=== PATIENT | female | born 1955 | race Caucasian/White ===

== ENCOUNTER 2017-08-05 11:21 | Observation (INO) | payer OTHER ==
[2017-08-05] VITALS (9 sets, daily range): BP systolic 100–125; BP diastolic 64–80; PULSE 86–106; RESP 16–20; TEMP 98.2–98.4; O2SAT 97–99
[~2017-08-05 11:21] MED LIST: DIAZ5 PO; LEXA10TA PO; OXYC-360 PO; SOMA350T PO; XANA1TAB6 PO
[2017-08-05] MEDS ORDERED: MORP1TAB25 PO (11:57)
[2017-08-05] MEDS ORDERED: CYMB30CA PO (11:57)
[2017-08-05] MEDS ORDERED: CARI1TAB45 PO (11:57)
[2017-08-05] MEDS ORDERED: QUET1TAB9 PO (11:57)
[2017-08-05] MEDS ORDERED: PROM25TA10 PO (11:57)
[2017-08-05] MEDS ORDERED: ALPR2TAB3 PO ×2 (11:57→16:11)
[2017-08-05 12:31] LABS: AUTOMATED NEUTROPHIL # 3.8 TH/MM3 (1.8-7.7); BASOPHIL % 0.8 % (0.0-2.0); EOSINOPHIL % 0.4 % (0.0-4.0); HEMO FLAGS DIFF FINAL; LYMPH % 25.9 % (9.0-44.0); LYMPHOCYTE # 1.5 TH/MM3 (1.0-4.8); MEAN CORPUSCULAR HGB CONC 32.6 % (32.0-36.0); NEUT % 65.9 % (16.0-70.0); PLATELET COUNT 252 TH/MM3 (150-450); RED BLOOD COUNT 4.67 MIL/MM3 (4.00-5.30); WHITE BLOOD COUNT 5.8 TH/MM3 (4.0-11.0)
[2017-08-05 12:42] LABS: APTT (PATIENT) 25.4 SEC (24.3-30.1); INTERNATIONAL NORMALIZED RATIO 0.9 RATIO
--- NOTE | 2017-08-05 12:55 | PD ---
HPI Chief Complaint: Altered Mental Status Time Seen by Provider: 11:44 Travel History International Travel<30 days: No Contact w/Intl Traveler<30days: No Traveled to known affect area: No History of Present Illness HPI 62-year-old female that presents to the ED for evaluation of syncopal episode with altered mental status. Patient apparently was found by neighbors altered and apparently had a syncopal episode. Patient states that she does not remember what happened. Patient was Castro acted as she did not want to come to the hospital and there was some concern that this might be medication related. Patient at this moment appears to be back to baseline. She denies any symptoms other than having chest pain before this event happened. She does not remember what happened. She denies any drug abuse or alcohol abuse. She denies overdosing or have any suicidal or homicidal ideation. She states that she's had similar chest pain the past when she had her first A. fib episode. She denies any history of heart disease other than A. fib. She denies any symptoms at this time other than feeling weak and somewhat lethargic. She states that she takes Xanax chronically for anxiety. Most of the report of what happened on was given to me by ED nurse who spoke with ambulance as patient herself does not remember anything. Unclear if there was any head injury. She does not appear to have any signs of trauma on her. PFSH Past Medical History Arthritis: No Asthma: No Autoimmune Disease: No Blood Disorders: No Bipolar Disorder: Yes Anxiety: No Depression: Yes Heart Rhythm Problems: No Cancer: No Cardiovascular Problems: No High Cholesterol: No Chemotherapy: No Chest Pain: No Congestive Heart Failure: No COPD: No Cerebrovascular Accident: No Diabetes: No Diminished Hearing: No Gastrointestinal Disorders: No GERD: No Glaucoma: No Genitourinary: No Headaches: No Hepatitis: No Hiatal Hernia: No Heparin Induced Thrombocytopen: No Hypertension: No Immune Disorder: No Implanted Vascular Access Dvce: No Kidney Stones: No Musculoskeletal: Yes Neurologic: No Psychiatric: Yes (BIPOLAR. DEPRESSION) Reproductive: No Respiratory: No Migraines: No Myocardial Infarction: No Radiation Therapy: No Renal Failure: No Seizures: No Sickle Cell Disease: No Sleep Apnea: No Thyroid Disease: No Ulcer: No ?: Not Menopausal: Yes Past Surgical History Abdominal Surgery: No AICD: No Appendectomy: No Arteriovenous Shunt: No Cardiac Surgery: No Section: Yes Cholecystectomy: No Ear Surgery: No Eye Surgery: No Genitourinary Surgery: No Gynecologic Surgery: Yes (HYSTERECTOMY MAY 2001) Insulin Pump: No Joint Replacement: No Neurologic Surgery: No Oral Surgery: No Pacemaker: No Thoracic Surgery: No Other Surgery: Yes Social History Alcohol Use: No Tobacco Use: Yes Substance Use: No Allergies-Medications (Allergen,Severity, Reaction): Coded Allergies: Fish Containing Products (Unverified Allergy, Severe, 08/05/17) Sulfa (Sulfonamide Antibiotics) (Unverified Allergy, Severe, HIVES, THROAT SWELLS CLOSED, 08/05/17) ciprofloxacin (Verified Allergy, Intermediate, rash, 08/05/17) latex (Unverified Adverse Reaction, Mild, rash, 08/05/17) Reported Meds & Prescriptions Reported Meds & Active Scripts Active Reported Cymbalta DR (Duloxetine HCl) 30 Mg Capdr 30 Mg PO DAILY Quetiapine (Quetiapine Fumarate) 200 Mg Tab 200 Mg PO HS Morphine ER (Morphine Sulfate) 30 Mg Tab 30 Mg PO BID Phenergan (Promethazine HCl) 25 Mg Tablet 25 Mg PO Q8HR NEB Carisoprodol 250 Mg Tab 250 Mg PO QID PRN Alprazolam 2 Mg Tab 2 Mg PO TID Review of Systems Except as stated in HPI: all other systems reviewed are Neg Physical Exam Narrative GENERAL: SKIN: Warm and dry. HEAD: Atraumatic. Normocephalic. EYES: Pupils equal and round. No scleral icterus. No injection or drainage. ENT: No nasal bleeding or discharge. Mucous membranes pink and moist. Tongue is midline. No uvula deviation. NECK: Trachea midline. No JVD. CARDIOVASCULAR: Regular rate and rhythm. No murmurs, S3, S4. RESPIRATORY: No accessory muscle use. Clear to auscultation. Breath sounds equal bilaterally. GASTROINTESTINAL: Abdomen soft, non-tender, nondistended. Hepatic and splenic margins not palpable. MUSCULOSKELETAL: Extremities without clubbing, cyanosis, or edema. No obvious deformities. Full range of motion of the upper and lower extremities bilaterally. 2+ pulses bilaterally. NEUROLOGICAL: Awake and alert. No obvious cranial nerve deficits. Motor grossly within normal limits. Five out of 5 muscle strength in the arms and legs. Normal speech. PSYCHIATRIC: Appropriate mood and affect; insight and judgment normal. Data Data Last Documented VS Vital Signs Date Time Temp Pulse Resp B/P (MAP) Pulse Ox O2 Delivery O2 Flow Rate FiO2 08/05/17 11:42 105 20 99 Nasal Cannula 2.00 08/05/17 11:42 98.2 100/64 (76) Orders Orders Electrocardiogram (08/05/17 11:49) Complete Blood Count With Diff (08/05/17 11:49) Comprehensive Metabolic Panel (08/05/17 11:49) Ckmb (Isoenzyme) Profile (08/05/17 11:49) Troponin I (08/05/17 11:49) Prothrombin Time / Inr (Pt) (08/05/17 11:49) Act Partial Throm Time (Ptt) (08/05/17 11:49) Lipase (08/05/17 11:49) Urinalysis - C+S If Indicated (08/05/17 11:49) Magnesium (Mg) (08/05/17 11:49) Thyroid Stimulating Hormone (08/05/17 11:49) Chest, Single Ap (08/05/17 11:49) Ct Brain W/O Iv Contrast(Rout) (08/05/17 11:49) Iv Access Insert/Monitor (08/05/17 11:49) Ecg Monitoring (08/05/17 11:49) Oximetry (08/05/17 11:49) Drug Screen, Random Urine (08/05/17 11:49) Alcohol (Ethanol) (08/05/17 11:49) Salicylates (Aspirin) (08/05/17 11:49) Tylenol (Acetaminophen) (08/05/17 11:49) Sodium Chlor 0.9% 1000 Ml Inj (Ns 1000 M (08/05/17 15:00) Orthostatic Vital Signs (08/05/17 13:32) Admit Order (Ed Use Only) (08/05/17 14:32) Consult Psychiatry (08/05/17 ) Labs Laboratory Tests Test 08/05/17 11:40 08/05/17 13:00 08/05/17 13:30 White Blood Count 5.8 TH/MM3 Red Blood Count 4.67 MIL/MM3 Hemoglobin 14.0 GM/DL Hematocrit 43.0 % Mean Corpuscular Volume 92.0 FL Mean Corpuscular Hemoglobin 30.0 PG Mean Corpuscular Hemoglobin Concent 32.6 % Red Cell Distribution Width 15.0 % Platelet Count 252 TH/MM3 Mean Platelet Volume 7.4 FL Neutrophils (%) (Auto) 65.9 % Lymphocytes (%) (Auto) 25.9 % Monocytes (%) (Auto) 7.0 % Eosinophils (%) (Auto) 0.4 % Basophils (%) (Auto) 0.8 % Neutrophils # (Auto) 3.8 TH/MM3 Lymphocytes # (Auto) 1.5 TH/MM3 Monocytes # (Auto) 0.4 TH/MM3 Eosinophils # (Auto) 0.0 TH/MM3 Basophils # (Auto) 0.0 TH/MM3 CBC Comment DIFF FINAL Differential Comment Prothrombin Time 10.0 SEC Prothromb Time International Ratio 0.9 RATIO Activated Partial Thromboplast Time 25.4 SEC Blood Urea Nitrogen 13 MG/DL Creatinine 1.23 MG/DL Random Glucose 99 MG/DL Total Protein 5.7 GM/DL Albumin 2.3 GM/DL Calcium Level 7.5 MG/DL Magnesium Level 2.3 MG/DL Alkaline Phosphatase 141 U/L Aspartate Amino Transf (AST/SGOT) 18 U/L Alanine Aminotransferase (ALT/SGPT) 21 U/L Total Bilirubin LESS THAN 0.1 MG/DL Sodium Level 139 MEQ/L Potassium Level 4.4 MEQ/L Chloride Level 106 MEQ/L Carbon Dioxide Level 25.6 MEQ/L Anion Gap 7 MEQ/L Estimat Glomerular Filtration Rate 44 ML/MIN Total Creatine Kinase 66 U/L Troponin I LESS THAN 0.02 NG/ML Lipase 45 U/L Thyroid Stimulating Hormone 3rd Gen 1.280 uIU/ML Salicylates Level 3.0 MG/DL Acetaminophen Level LESS THAN 2.0 MCG/ML Ethyl Alcohol Level LESS THAN 3 MG/DL Urine Color YELLOW Urine Turbidity CLEAR Urine pH 5.5 Urine Specific [place] 1.033 Urine Protein 30 mg/dL Urine Glucose (UA) NEG mg/dL Urine Ketones TRACE mg/dL Urine Occult Blood NEG Urine Nitrite NEG Urine Bilirubin NEG Urine Urobilinogen 4.0 MG/DL Urine Leukocyte Esterase SMALL Urine RBC 2 /hpf Urine WBC 1 /hpf Urine Squamous Epithelial Cells 2 /hpf Urine Bacteria RARE /hpf Urine Hyaline Casts 3 /lpf Urine Mucus FEW /lpf Microscopic Urinalysis Comment CULT NOT INDICATED Urine Opiates Screen POS Urine Barbiturates Screen NEG Urine Amphetamines Screen NEG Urine Benzodiazepines Screen POS Urine Cocaine Screen NEG Urine Cannabinoids Screen NEG MDM Medical Decision Making Medical Screen Exam Complete: Yes Emergency Medical Condition: Yes Medical Record Reviewed: Yes Interpretation(s) EKG shows sinus tachycardia but no sign of acute ischemia or arrhythmia read by me and attending. Last Impressions Head CT 08/05/17 1149 Signed Impressions: Service Date/Time: Saturday, August 05, 2017 13:53 - CONCLUSION: No acute intercranial abnormality demonstrated. Vicente Guerra MD Chest X-Ray 08/05/17 1149 Signed Impressions: Service Date/Time: Saturday, August 05, 2017 12:49 - CONCLUSION: Mild basilar parenchymal opacities Vicente Keller MD CBC & BMP Diagram 08/05/17 11:40 Total Protein 5.7 L, Albumin 2.3 L, Calcium Level 7.5 L, Magnesium Level 2.3, Alkaline Phosphatase 141 H, Aspartate Amino Transf (AST/SGOT) 18, Alanine Aminotransferase (ALT/SGPT) 21, Total Bilirubin LESS THAN 0.1 L troponin and CKMB negative tox screen positive for benzos and opiates otherwise negative Differential Diagnosis Syncope versus medication side effect versus chest pain versus a typical chest pain versus electrolyte abnormality versus altered mental status Narrative Course 62-year-old female that presents to the ED for evaluation of altered mental status. Patient was properly examined and was found to have signs and symptoms consistent what appears to be syncope. Unclear etiology. Patient was Castro acted by police as she initially was altered and did not wanted to come here. Patient at this time appears to be more with it. She denies any symptoms at this time. No chest pain. Labs and imaging were ordered. Patient was given IV fluids that she was initially found to be hypotensive by ambulance. Labs and imaging came back essentially negative. Patient still and oriented 3. Case discussed with Dr Collins who was made aware of all finding and labs and at this time would recommend medical admission for further evaluation of syncope. Patient still Castro act. We'll do psych consult. [facility] was contacted. Dr Cordero agrees to admit. Diagnosis Primary Impression: Syncope Qualified Codes: R55 - Syncope and collapse Additional Impression: Altered mental state Qualified Codes: R41.82 - Altered mental status, unspecified Admitting Information Admitting Physician Requests: Observation Mathew Dupree Aug 05, 2017 12:55
[2017-08-05 13:16] LABS: ACETAMINOPHEN LESS THAN 2.0 MCG/ML (10.0-30.0); ALKALINE PHOSPHATASE 141 U/L (45-117); ALT (GPT) 21 U/L (10-53); ANION GAP 7 MEQ/L (5-15); AST (GOT) 18 U/L (15-37); BICARBONATE 25.6 MEQ/L (21.0-32.0); BLOOD UREA NITROGEN 13 MG/DL (7-18); CHLORIDE 106 MEQ/L (98-107); GLOMERULAR FILTRATION RATE 44 ML/MIN (>89); MAGNESIUM 2.3 MG/DL (1.5-2.5); POTASSIUM 4.4 MEQ/L (3.5-5.1); SODIUM (NA) 139 MEQ/L (136-145); TOTAL BILIRUBIN ADULT LESS THAN 0.1 MG/DL (0.2-1.0)
[2017-08-05 13:18] LABS: ALCOHOL LESS THAN 3 MG/DL (0-5); CREATINE KINASE 66 U/L (26-192)
--- NOTE | 2017-08-05 13:25 | RADRPT ---
EXAM DATE/TIME: 08/05/2017 12:49 [facility] COMPARISON: No previous studies available for comparison. INDICATIONS : Mid sternal chest pains radiating into left arm MEDICAL HISTORY : None. SURGICAL HISTORY : None. ENCOUNTER: Initial ACUITY: 3 days PAIN SCORE: 9/10 LOCATION: Left chest FINDINGS: Mild atelectasis or streaky infiltrate in the lung bases, left worse than right. No evidence of effus ion. Cardiomediastinal contours and pulmonary vascularity are normal. CONCLUSION: Mild basilar parenchymal opacities Vicente Keller MD on August 05, 2017 at 13:23 Board Certified Radiologist. This report was verified electronically.
[2017-08-05 13:46] LABS: BACTERIA, URINE RARE /hpf; BLOOD, URINE NEG (NEG); COMMENT (UR) CULT NOT INDICATED; CULTURE IF INDICATED CULT NOT INDICATED; GLUCOSE,URINE NEG (NEG); HYALINE CAST, URINE 3 /lpf (RARE); KETONE, URINE TRACE mg/dL (NEG); MUCUS URINE FEW /lpf (OCC); NITRITE,URINE NEG (NEG); PH, URINE 5.5 (5.0-8.5); SQUAMOUS EPITHELIAL CELL URINE 2 /hpf (0-5); URINE COLOR YELLOW (YELLW/STRAW)
--- NOTE | 2017-08-05 14:17 | RADRPT ---
EXAM DATE/TIME: 08/05/2017 13:53 [facility] COMPARISON: No previous studies available for comparison. INDICATIONS : Altered mental status RADIATION DOSE: 31.17 CTDIvol (mGy) MEDICAL HISTORY : None SURGICAL HISTORY : Hysterectomy. section. ENCOUNTER: Initial ACUITY: 1 day PAIN SCALE: 0/10 LOCATION: cranial TECHNIQUE: Multiple contiguous axial images were obtained of the head. Using automated exposure control and adj ustment of the mA and/or kV according to patient size, radiation dose was kept as low as reasonably a chievable to obtain optimal diagnostic quality images. DICOM format image data is available electro nically for review and comparison. FINDINGS: CEREBRUM: The ventricles are normal for age. No evidence of midline shift, mass lesion, hemorrhage or acute in farction. No extra-axial fluid collections are seen. POSTERIOR FOSSA: The cerebellum and brainstem are intact. The 4th ventricle is midline. The cerebellopontine angle i s unremarkable. EXTRACRANIAL: The visualized portion of the orbits is intact. SKULL: The calvaria is intact. No evidence of skull fracture. CONCLUSION: No acute intercranial abnormality demonstrated. Vicente Guerra MD on August 05, 2017 at 14:10 Board Certified Radiologist. This report was verified electronically.
[2017-08-05] MEDS ORDERED: SODIUM CHLOR 0.9% 1000 ML INJ 1,000 ML IV SCH (15:00)
--- NOTE | 2017-08-05 16:21 | HHI.HP ---
HPI Service [facility] Hospitalists Primary Care Physician Bhavik Tavera M.D. Admission Diagnosis acute syncope with AMS Chief Complaint: AMS Travel History International Travel<30 Days: No Contact w/Intl Traveler <30 Da: No Traveled to Known Affected Are: No History of Present Illness Patient went to her neighbors to bring her a book then does not remember anything else until she was in the ambulance. Per RN patient was hypotensive when the EMS team arrived SBP 80's Past Family Social History Allergies: Coded Allergies: Fish Containing Products (Unverified Allergy, Severe, 08/05/17) Sulfa (Sulfonamide Antibiotics) (Unverified Allergy, Severe, HIVES, THROAT SWELLS CLOSED, 08/05/17) ciprofloxacin (Verified Allergy, Intermediate, rash, 08/05/17) latex (Unverified Adverse Reaction, Mild, rash, 08/05/17) Physical Exam Vital Signs Vital Signs Date Time Temp Pulse Resp B/P (MAP) Pulse Ox O2 Delivery O2 Flow Rate FiO2 08/05/17 16:04 92 18 114/74 (87) 96 20 118/79 (92) 08/05/17 15:14 98 Room Air 08/05/17 14:30 92 16 107/77 (87) 98 Room Air 08/05/17 11:42 105 20 99 Nasal Cannula 2.00 08/05/17 11:42 98.2 106 20 100/64 (76) 99 Nasal Cannula 2.00 08/05/17 11:36 98.4 104 20 100/64 (76) 97 Physical Exam GENERAL: This is a well-nourished, well-developed patient, in no apparent distress. SKIN: No rashes, ecchymoses or lesions. Cool and dry. HEAD: Atraumatic. Normocephalic. No temporal or scalp tenderness. EYES: Pupils equal round and reactive. Extraocular motions intact. No scleral icterus. No injection or drainage. ENT: Nose without bleeding, purulent drainage or septal hematoma. Throat without erythema, tonsillar hypertrophy or exudate. Uvula midline. Airway patent. NECK: Trachea midline. No JVD or lymphadenopathy. Supple, nontender, no meningeal signs. CARDIOVASCULAR: Regular rate and rhythm without murmurs, gallops, or rubs. RESPIRATORY: Clear to auscultation. Breath sounds equal bilaterally. No wheezes , rales, or rhonchi. GASTROINTESTINAL: Abdomen soft, non-tender, nondistended. No hepato-splenomegaly , or palpable masses. No guarding. MUSCULOSKELETAL: Extremities without clubbing, cyanosis, or edema. No joint tenderness, effusion, or edema noted. No calf tenderness. Negative Homans sign bilaterally. NEUROLOGICAL: Awake and alert. Cranial nerves II through XII intact. Motor and sensory grossly within normal limits. Five out of 5 muscle strength in all muscle groups. Normal speech. Laboratory Laboratory Tests Test 08/05/17 11:40 08/05/17 13:00 08/05/17 13:30 White Blood Count 5.8 Red Blood Count 4.67 Hemoglobin 14.0 Hematocrit 43.0 Mean Corpuscular Volume 92.0 Mean Corpuscular Hemoglobin 30.0 Mean Corpuscular Hemoglobin Concent 32.6 Red Cell Distribution Width 15.0 Platelet Count 252 Mean Platelet Volume 7.4 Neutrophils (%) (Auto) 65.9 Lymphocytes (%) (Auto) 25.9 Monocytes (%) (Auto) 7.0 Eosinophils (%) (Auto) 0.4 Basophils (%) (Auto) 0.8 Neutrophils # (Auto) 3.8 Lymphocytes # (Auto) 1.5 Monocytes # (Auto) 0.4 Eosinophils # (Auto) 0.0 Basophils # (Auto) 0.0 CBC Comment DIFF FINAL Differential Comment Prothrombin Time 10.0 Prothromb Time International Ratio 0.9 Activated Partial Thromboplast Time 25.4 Blood Urea Nitrogen 13 Creatinine 1.23 Random Glucose 99 Total Protein 5.7 Albumin 2.3 Calcium Level 7.5 Magnesium Level 2.3 Alkaline Phosphatase 141 Aspartate Amino Transf (AST/SGOT) 18 Alanine Aminotransferase (ALT/SGPT) 21 Total Bilirubin LESS THAN 0.1 Sodium Level 139 Potassium Level 4.4 Chloride Level 106 Carbon Dioxide Level 25.6 Anion Gap 7 Estimat Glomerular Filtration Rate 44 Total Creatine Kinase 66 Troponin I LESS THAN 0.02 Lipase 45 Thyroid Stimulating Hormone 3rd Gen 1.280 Salicylates Level 3.0 Acetaminophen Level LESS THAN 2.0 Ethyl Alcohol Level LESS THAN 3 Urine Color YELLOW Urine Turbidity CLEAR Urine pH 5.5 Urine Specific [place] 1.033 Urine Protein 30 Urine Glucose (UA) NEG Urine Ketones TRACE Urine Occult Blood NEG Urine Nitrite NEG Urine Bilirubin NEG Urine Urobilinogen 4.0 Urine Leukocyte Esterase SMALL Urine RBC 2 Urine WBC 1 Urine Squamous Epithelial Cells 2 Urine Bacteria RARE Urine Hyaline Casts 3 Urine Mucus FEW Microscopic Urinalysis Comment CULT NOT INDICATED Urine Opiates Screen POS Urine Barbiturates Screen NEG Urine Amphetamines Screen NEG Urine Benzodiazepines Screen POS Urine Cocaine Screen NEG Urine Cannabinoids Screen NEG Result Diagram: 08/05/17 1140 08/05/17 1140 Caprini VTE Risk Assessment Caprini Risk Assessment Model Point Value = 1 Point Value = 2 Point Value = 3 Point Value = 5 Age 41-60 Minor surgery BMI > 25 kg/m2 Swollen legs Varicose veins or History of unexplained or recurrent spontaneous Oral contraceptives or hormone replacement Sepsis (< 1 month) Serious lung disease, including pneumonia (< 1 month) Abnormal pulmonary function Acute myocardial infarction Congestive heart failure (< 1 month) History of inflammatory bowel disease Medical patient at bed rest Age 61-74 Arthroscopic surgery Major open surgery (> 45 min) Laparoscopic surgery (> 45 min) Malignancy Confined to bed (> 72 hours) Immobilizing plaster cast Central venous access Age >= 75 History of VTE Family history of VTE Factor V Leiden Prothrombin [id number] Lupus anticoagulant Anticardiolipin antibodies Elevated serum homocysteine Heparin-induced thrombocytopenia Other congenital or acquired thrombophilia Stroke (< 1 month) Elective arthroplasty Hip, pelvis, or leg fracture Acute spinal cord injury (< 1 month) Prophylaxis Regimen Total Risk Factor Score Risk Level Prophylaxis Regimen 0-1 Low Early ambulation 2 Moderate Order ONE of the following: *Sequential Compression Device (SCD) *Heparin 5000 units SQ BID 3-4 Higher Order ONE of the following medications: *Heparin 5000 units SQ TID *Enoxaparin/Lovenox 40 mg SQ daily (WT < 150 kg, CrCl > 30 mL/min) *Enoxaparin/Lovenox 30 mg SQ daily (WT < 150 kg, CrCl > 10-29 mL/min) *Enoxaparin/Lovenox 30 mg SQ BID (WT < 150 kg, CrCl > 30 mL/min) AND/OR *Sequential Compression Device (SCD) 5 or more Highest Order ONE of the following medications: *Heparin 5000 units SQ TID (Preferred with Epidurals) *Enoxaparin/Lovenox 40 mg SQ daily (WT < 150 kg, CrCl > 30 mL/min) *Enoxaparin/Lovenox 30 mg SQ daily (WT < 150 kg, CrCl > 10-29 mL/min) *Enoxaparin/Lovenox 30 mg SQ BID (WT < 150 kg, CrCl > 30 mL/min) AND *Sequential Compression Device (SCD) Belem Wynne Aug 05, 2017 16:21
[2017-08-05] MEDS ORDERED: NALOXONE HCL 0.4 MG/ML AMP IV PRN (16:30)
[2017-08-05] MEDS ORDERED: MAGNESIUM HYDROXIDE SUSP 30 ML CUP PO PRN (16:30)
[2017-08-05] MEDS ORDERED: ONDANSETRON HCL 4 MG/2 ML VIAL IVP PRN (16:30)
[2017-08-05] MEDS ORDERED: ACETAMINOPHEN 325 MG TAB PO PRN (16:30)
[2017-08-05] MEDS ORDERED: SODIUM CHLORIDE 0.9% FLUSH 10 ML FLUSH IV FLUSH PRN (16:30)
--- NOTE | 2017-08-05 16:30 | HHI.HP ---
HPI Service [facility] Hospitalists Primary Care Physician Bhavik Tavera M.D. Admission Diagnosis acute syncope with AMS Travel History International Travel<30 Days: No Contact w/Intl Traveler <30 Da: No Traveled to Known Affected Are: No History of Present Illness This is a 62-year-old female patient with past medical history which includes chronic kidney disease stage III, chronic back pain, bipolar/depression. Patient remembers going to her neighbor's house to bring her book then does not remember anything else until she was in the ambulance. Patient unable to provide her neighbor's telephone number at this time. Unable to obtain exact account of events. Patient is a poor historian as she does not recall the events. Patient does not call presyncopal sensation, complete syncope, head trauma or loss of consciousness. Per RN patient was hypotensive when the EMS team arrived to her neighbor's house with SBP 80's. Patient was initially Castro acted as she was refusing to come to the emergency department for further evaluation. At this time patient is alert and oriented 3 reports she feels well denies chest pain shortness of breath cough congestion fevers chills nausea vomiting diarrhea constipation. Patient reports prior to the incident she was in her normal state of health. His admit that her psychiatrist Dr. Fraser has been adjusting her medications. Patient's in May and her daughter recently as well. Patient reports that her Seroquel was increased to 200 mg daily at bedtime from 100 mg daily at bedtime and Cymbalta 30 mg daily was added. Review of Systems Constitutional: DENIES: Fatigue, Fever, Chills Respiratory: DENIES: Cough, Sputum production, Shortness of breath Cardiovascular: DENIES: Chest pain, Palpitations, Dyspnea on Exertion, Lower Extremity Edema Gastrointestinal: DENIES: Abdominal pain, Black stools, Bloody stools, Constipation, Diarrhea Psychiatric: COMPLAINS OF: History of Bipolar, DENIES: Anxiety, Depression Past Family Social History Past Medical History chronic kidney disease stage III, chronic back pain, bipolar/depression Past Surgical History Complete hysterectomy 2000, Reported Medications Alprazolam 2 Mg Tab 2 Mg PO HS MDD [address] (Duloxetine HCl) 30 Mg Capdr 30 Mg PO DAILY Quetiapine (Quetiapine Fumarate) 200 Mg Tab 200 Mg PO HS Morphine ER (Morphine Sulfate) 30 Mg Tab 30 Mg PO BID Phenergan (Promethazine HCl) 25 Mg Tablet 25 Mg PO Q8HR NEB Carisoprodol 250 Mg Tab 250 Mg PO QID PRN Allergies: Coded Allergies: Fish Containing Products (Unverified Allergy, Severe, 08/05/17) Sulfa (Sulfonamide Antibiotics) (Unverified Allergy, Severe, HIVES, THROAT SWELLS CLOSED, 08/05/17) ciprofloxacin (Verified Allergy, Intermediate, rash, 08/05/17) latex (Unverified Adverse Reaction, Mild, rash, 08/05/17) Active Ordered Medications Current Medications Medications (Trade) Dose Ordered Sig/Rajiv Route Start Time Stop Time Status Last Admin Sodium Chloride 1,000 ml @ 84 mls/hr [id number] IV 08/05/17 16:23 UNV (NS Flush) 2 ml UNSCH PRN IV FLUSH 08/05/17 16:30 UNV (NS Flush) 2 ml BID IV FLUSH 08/05/17 21:00 UNV (Tylenol) 650 mg Q4H PRN PO 08/05/17 16:30 UNV (Zofran Inj) 4 mg Q6H PRN IVP 08/05/17 16:30 UNV (Narcan Inj) 0.4 mg UNSCH PRN IV 08/05/17 16:30 UNV (Milk Of Magnesia Liq) 30 ml Q12H PRN PO 08/05/17 16:30 UNV (Xanax) 2 mg HS PO 08/05/17 21:00 UNV (Cymbalta Dr) 30 mg DAILY PO 08/06/17 09:00 UNV (Oramorph Sr) 30 mg BID PO 08/05/17 21:00 UNV (SEROquel) 100 mg HS PO 08/05/17 21:00 UNV Family History Father in his 40s secondary to aneurysm Mother is in her 80s alive and healthy Social History Patient quit smoking 2 years ago- prior to that smoked 3-4 cigarette per day Denies EtOH use, denies illicit drug use Physical Exam Vital Signs Vital Signs Date Time Temp Pulse Resp B/P (MAP) Pulse Ox O2 Delivery O2 Flow Rate FiO2 08/05/17 16:04 92 18 114/74 (87) 96 20 118/79 (92) 08/05/17 15:14 98 Room Air 08/05/17 14:30 92 16 107/77 (87) 98 Room Air 08/05/17 11:42 105 20 99 Nasal Cannula 2.00 08/05/17 11:42 98.2 106 20 100/64 (76) 99 Nasal Cannula 2.00 08/05/17 11:36 98.4 104 20 100/64 (76) 97 Physical Exam GENERAL: This is a well-nourished, well-developed patient, in no apparent distress. SKIN: No rashes, ecchymoses or lesions. Cool and dry. HEAD: Atraumatic. Normocephalic. No temporal or scalp tenderness. EYES: Extraocular motions intact. No scleral icterus. No injection or drainage. NECK: Trachea midline. No JVD or lymphadenopathy. Supple, nontender, no meningeal signs. CARDIOVASCULAR: Regular rate and rhythm without murmurs, gallops, or rubs. No carotid bruit on auscultation RESPIRATORY: Clear to auscultation. Breath sounds equal bilaterally. No wheezes , rales, or rhonchi. GASTROINTESTINAL: Abdomen soft, non-tender, nondistended. MUSCULOSKELETAL: Extremities without clubbing, cyanosis, or edema. No joint tenderness, effusion, or edema noted. No calf tenderness. Negative Homans sign bilaterally. NEUROLOGICAL: Awake and alert. No focal deficit noted. Motor and sensory grossly within normal limits. Five out of 5 muscle strength in all muscle groups. Normal speech. Laboratory Laboratory Tests Test 08/05/17 11:40 08/05/17 13:00 08/05/17 13:30 White Blood Count 5.8 Red Blood Count 4.67 Hemoglobin 14.0 Hematocrit 43.0 Mean Corpuscular Volume 92.0 Mean Corpuscular Hemoglobin 30.0 Mean Corpuscular Hemoglobin Concent 32.6 Red Cell Distribution Width 15.0 Platelet Count 252 Mean Platelet Volume 7.4 Neutrophils (%) (Auto) 65.9 Lymphocytes (%) (Auto) 25.9 Monocytes (%) (Auto) 7.0 Eosinophils (%) (Auto) 0.4 Basophils (%) (Auto) 0.8 Neutrophils # (Auto) 3.8 Lymphocytes # (Auto) 1.5 Monocytes # (Auto) 0.4 Eosinophils # (Auto) 0.0 Basophils # (Auto) 0.0 CBC Comment DIFF FINAL Differential Comment Prothrombin Time 10.0 Prothromb Time International Ratio 0.9 Activated Partial Thromboplast Time 25.4 Blood Urea Nitrogen 13 Creatinine 1.23 Random Glucose 99 Total Protein 5.7 Albumin 2.3 Calcium Level 7.5 Magnesium Level 2.3 Alkaline Phosphatase 141 Aspartate Amino Transf (AST/SGOT) 18 Alanine Aminotransferase (ALT/SGPT) 21 Total Bilirubin LESS THAN 0.1 Sodium Level 139 Potassium Level 4.4 Chloride Level 106 Carbon Dioxide Level 25.6 Anion Gap 7 Estimat Glomerular Filtration Rate 44 Total Creatine Kinase 66 Troponin I LESS THAN 0.02 Lipase 45 Thyroid Stimulating Hormone 3rd Gen 1.280 Salicylates Level 3.0 Acetaminophen Level LESS THAN 2.0 Ethyl Alcohol Level LESS THAN 3 Urine Color YELLOW Urine Turbidity CLEAR Urine pH 5.5 Urine Specific [place] 1.033 Urine Protein 30 Urine Glucose (UA) NEG Urine Ketones TRACE Urine Occult Blood NEG Urine Nitrite NEG Urine Bilirubin NEG Urine Urobilinogen 4.0 Urine Leukocyte Esterase SMALL Urine RBC 2 Urine WBC 1 Urine Squamous Epithelial Cells 2 Urine Bacteria RARE Urine Hyaline Casts 3 Urine Mucus FEW Microscopic Urinalysis Comment CULT NOT INDICATED Urine Opiates Screen POS Urine Barbiturates Screen NEG Urine Amphetamines Screen NEG Urine Benzodiazepines Screen POS Urine Cocaine Screen NEG Urine Cannabinoids Screen NEG Result Diagram: 08/05/17 1140 08/05/17 1140 Imaging Last Impressions Head CT 08/05/17 1149 Signed Impressions: Service Date/Time: Saturday, August 05, 2017 13:53 - CONCLUSION: No acute intercranial abnormality demonstrated. Vicente Guerra MD Chest X-Ray 08/05/17 1149 Signed Impressions: Service Date/Time: Saturday, August 05, 2017 12:49 - CONCLUSION: Mild basilar parenchymal opacities Vicente Keller MD Caprini VTE Risk Assessment Caprini VTE Risk Assessment: Mod/High Risk (score >= 2) Caprini Risk Assessment Model Point Value = 1 Point Value = 2 Point Value = 3 Point Value = 5 Age 41-60 Minor surgery BMI > 25 kg/m2 Swollen legs Varicose veins or History of unexplained or recurrent spontaneous Oral contraceptives or hormone replacement Sepsis (< 1 month) Serious lung disease, including pneumonia (< 1 month) Abnormal pulmonary function Acute myocardial infarction Congestive heart failure (< 1 month) History of inflammatory bowel disease Medical patient at bed rest Age 61-74 Arthroscopic surgery Major open surgery (> 45 min) Laparoscopic surgery (> 45 min) Malignancy Confined to bed (> 72 hours) Immobilizing plaster cast Central venous access Age >= 75 History of VTE Family history of VTE Factor V Leiden Prothrombin [id number] Lupus anticoagulant Anticardiolipin antibodies Elevated serum homocysteine Heparin-induced thrombocytopenia Other congenital or acquired thrombophilia Stroke (< 1 month) Elective arthroplasty Hip, pelvis, or leg fracture Acute spinal cord injury (< 1 month) Prophylaxis Regimen Total Risk Factor Score Risk Level Prophylaxis Regimen 0-1 Low Early ambulation 2 Moderate Order ONE of the following: *Sequential Compression Device (SCD) *Heparin 5000 units SQ BID 3-4 Higher Order ONE of the following medications: *Heparin 5000 units SQ TID *Enoxaparin/Lovenox 40 mg SQ daily (WT < 150 kg, CrCl > 30 mL/min) *Enoxaparin/Lovenox 30 mg SQ daily (WT < 150 kg, CrCl > 10-29 mL/min) *Enoxaparin/Lovenox 30 mg SQ BID (WT < 150 kg, CrCl > 30 mL/min) AND/OR *Sequential Compression Device (SCD) 5 or more Highest Order ONE of the following medications: *Heparin 5000 units SQ TID (Preferred with Epidurals) *Enoxaparin/Lovenox 40 mg SQ daily (WT < 150 kg, CrCl > 30 mL/min) *Enoxaparin/Lovenox 30 mg SQ daily (WT < 150 kg, CrCl > 10-29 mL/min) *Enoxaparin/Lovenox 30 mg SQ BID (WT < 150 kg, CrCl > 30 mL/min) AND *Sequential Compression Device (SCD) Assessment and Plan Problem List: (1) Delirium ICD Codes: R41.0 - Disorientation, unspecified (2) Bipolar 1 disorder, depressed ICD Codes: F31.9 - Bipolar disorder, unspecified (3) CKD (chronic kidney disease), stage III ICD Codes: N18.3 - Chronic kidney disease, stage 3 (moderate) Assessment and Plan Transient delirium- may be medication related Patient currently under castro act- Psych consulted - Patient's in May and also her dog recently - patient psychiatrist Dr. Rizzo has been adjusting medications recently started patient on Cymbalta 30 mg daily and increase Seroquel to 200 mg QHS from 100 mg QHS - will decrease Seroquel to 100 mg PO QHS - monitor patient overnight on telemetry - CT head reviewed no acute finding - PT evaluation Bipolar/Depression - continue home medications which include Cymbalta 30 mg daily and Alprazolam 2 mg PO QHS - will decrease Seroquel to 100 mg PO QHS CKD stage III - avoid nephrotoxic agents DVT prophylaxis with SCDs Patient examined. Assessment and plan formulated with Belem Wynne PA-C. I agree with the above. transient delirium and reported low bp. currently pt seems back to baseline. could be related to her pain and/or psych meds. monitor on tele and give ivf. PT eval. psych to see as pt was Castro acted. Belem Wynne Aug 05, 2017 16:30 Stanley Garg MD Aug 05, 2017 18:17
[2017-08-05] MEDS: SODIUM CHLOR 0.9% 1000 ML INJ 1,000 ML IV SCH (18:40)
[2017-08-05] MEDS: SODIUM CHLORIDE 0.9% FLUSH 10 ML FLUSH IV FLUSH SCH (20:10)
[2017-08-05] MEDS: MORPHINE SULFATE 30 MG CONTROLLED RELEASE TAB PO SCH (20:11)
[2017-08-05] MEDS ORDERED: QUEtiapine FUMARATE 100 MG TAB PO SCH (21:00)
[2017-08-05] MEDS ORDERED: ALPRAZolam 1 MG TAB PO SCH (21:00)
[2017-08-06] VITALS (7 sets, daily range): BP systolic 95–128; BP diastolic 60–72; PULSE 71–100; RESP 16–18; TEMP 97.7–98.3; O2SAT 96–100
[2017-08-06] MEDS: SODIUM CHLOR 0.9% 1000 ML INJ 1,000 ML IV SCH (06:18)
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
[2017-08-06] MEDS ORDERED: QUET1TAB8 PO (08:29)
--- NOTE | 2017-08-06 08:30 | HHI.DCPOC ---
Discharge Care Plan Diagnosis: (1) Delirium (2) Bipolar 1 disorder, depressed (3) CKD (chronic kidney disease), stage III Goals to Promote Your Health * To prevent worsening of your condition and complications * To maintain your health at the optimal level Directions to Meet Your Goals Take your medications as prescribed Follow your dietary instruction Follow activity as directed Keep your appointments as scheduled Take your immunizations and boosters as scheduled If your symptoms worsen call your PCP, if no PCP go to Urgent Care Center or Emergency Room Smoking is Dangerous to Your Health. Avoid second hand smoke Call the 24-hour hour crisis hotline for domestic abuse at Rosita Contreras Aug 06, 2017 08:30
[2017-08-06] MEDS: SODIUM CHLORIDE 0.9% FLUSH 10 ML FLUSH IV FLUSH SCH (09:00)
[2017-08-06] MEDS ORDERED: DULoxetine HCl DR 30 MG CAP PO SCH (09:00)
[2017-08-06] MEDS: MORPHINE SULFATE 30 MG CONTROLLED RELEASE TAB PO SCH (09:01)
--- NOTE | 2017-08-06 09:13 | PD.PSY.CON ---
Provisional Diagnosis Admission Date Aug 05, 2017 at 14:34 [place] I. Chronic bipolar disorder, anxiety [place] II. Deferred [place] III. Back pain History of Present Illness Service Psychiatry Consult Requested By Reason for Consult Suicidal attempt Primary Care Physician Bhavik Tavera M.D. HPI The patient is a 62-year-old woman, domicile with her mother in [place], , retired, with psychiatric history of bipolar disorder, anxiety , no previous psychiatric hospitalizations, no previous suicidal attempts, establish outpatient care with Dr. Rizzo in [place], she is on Cymbalta 30 mg, Seroquel 200 mg, Xanax 2 mg twice a day, medical history chronic kidney disease stage III, chronic back pain. Patient remembers going to her neighbor' s house to bring her book then does not remember anything else until she was in the ambulance. Patient unable to provide her neighbor's telephone number at this time. Unable to obtain exact account of events. Patient is a poor historian as she does not recall the events. Patient does not call presyncopal sensation, complete syncope, head trauma or loss of consciousness.Per RN patient was hypotensive when the EMS team arrived to her neighbor's house with SBP 80's. Patient was initially Castro acted as she was refusing to come to the emergency department for further evaluation. On psychiatric evaluation today patient is calm, cooperative and pleasant. Patient explains she doesn't understand what happened to her. She says that she was at baseline, in her usual mood state. She says that she has been depressed in the last month since her committed suicide in May 2016 and then her cat was put not down 2 weeks ago. However, the patient denies hopelessness, denies helplessness, denies low self-esteem, denies problems sleeping, denies poor concentration and appetite, denies suicidal or homicidal ideation, denies visual and auditory hallucinations. No kenyatta, no psychosis, no paranoia, delusions, no agitation, no aggressive behavior present. Patient is oriented 3, no gross cognitive impairment present. He denies the use of alcohol and drugs. Review of Systems Constitutional: DENIES: Diaphoretic episodes, Fatigue, Fever, Weight gain, Weight loss, Chills, Dizziness, Change in appetite, Night Sweats Endocrine: DENIES: Abnorml menstrual pattern, Heat/cold intolerance, Polydipsia , Polyuria, Polyphagia Eyes: DENIES: Blurred vision, Diplopia, Eye inflammation, Eye pain, Vision loss , Photosensitivity, Double Vision Ears, nose, mouth, throat: DENIES: Tinnitus, Hearing loss, Vertigo, Nasal discharge, Oral lesions, Throat pain, Hoarseness, Ear Pain, Running Nose, Epistaxis, Sinus Pain, Toothache, Odynophagia Respiratory: DENIES: Apneas, Cough, Snoring, Wheezing, Hemoptysis, Sputum production, Shortness of breath Cardiovascular: DENIES: Chest pain, Palpitations, Syncope, Dyspnea on Exertion , PND, Lower Extremity Edema, Orthopnea, Claudication Gastrointestinal: DENIES: Abdominal pain, Black stools, Bloody stools, Constipation, Diarrhea, Nausea, Vomiting, Difficulty Swallowing, Anorexia Genitourinary: DENIES: Abnormal vaginal bleeding, Dysmenorrhea, Dyspareunia, Sexual dysfunction, Urinary frequency, Urinary incontinence, Urgency, Hematuria , Dysuria, Nocturia, Vaginal discharge Integumentary: DENIES: Abnormal pigmentation, Pruritus, Rash, Nail changes, Breast masses, Breast skin changes, Nipple discharge Hematologic/lymphatic: DENIES: Bruising, Lymphadenopathy Immunologic/allergic: DENIES: Eczema, Urticaria Neurologic: DENIES: Abnormal gait, Headache, Localized weakness, Paresthesias, Seizures, Speech Problems, Tremor, Poor Balance Psychiatric: DENIES: Anxiety, Confusion, Mood changes, Depression, Hallucinations, Agitation, Suicidal Ideation, Homicidal Ideation, Delusions Past Family Social History Coded Allergies: Fish Containing Products (Unverified Allergy, Severe, 08/05/17) Sulfa (Sulfonamide Antibiotics) (Unverified Allergy, Severe, HIVES, THROAT SWELLS CLOSED, 08/05/17) ciprofloxacin (Verified Allergy, Intermediate, rash, 08/05/17) latex (Unverified Adverse Reaction, Mild, rash, 08/05/17) Active Scripts Alprazolam (Alprazolam) 2 Mg Tab, 2 MG PO HS for anxiety MDD 2, #1 TAB Prov:Belem Wynne 08/05/[address] (Cymbalta DR) 30 Mg Capdr, 30 MG PO DAILY, #30 CAP 0 Refills 08/05/17 Quetiapine (Quetiapine) 200 Mg Tab, 200 MG PO HS, #30 TAB 0 Refills 08/05/17 Morphine ER (Morphine ER) 30 Mg Tab, 30 MG PO BID for Pain Management, TAB 0 Refills 08/05/17 Promethazine (Phenergan) 25 Mg Tablet, 25 MG PO Q8HR NEB for Nausea/Vomiting, # 1 TAB 0 Refills 08/05/17 Carisoprodol (Carisoprodol) 250 Mg Tab, 250 MG PO QID Y for PAIN, TAB 0 Refills 08/05/17 Current Medications Medications (Trade) Dose Ordered Sig/Rajiv Route Start Time Stop Time Status Last Admin Sodium Chloride 1,000 ml @ 84 mls/hr [id number] IV 08/05/17 18:30 08/06/17 06:18 (NS Flush) 2 ml UNSCH PRN IV FLUSH 08/05/17 16:30 (NS Flush) 2 ml BID IV FLUSH 08/05/17 21:00 (Tylenol) 650 mg Q4H PRN PO 08/05/17 16:30 (Zofran Inj) 4 mg Q6H PRN IVP 08/05/17 16:30 (Narcan Inj) 0.4 mg UNSCH PRN IV 08/05/17 16:30 (Milk Of Magnesia Liq) 30 ml Q12H PRN PO 08/05/17 16:30 (Xanax) 2 mg HS PO 08/05/17 21:00 08/05/17 20:10 (Cymbalta Dr) 30 mg DAILY PO 08/06/17 09:00 08/06/17 09:01 (Oramorph Sr) 30 mg BID PO 08/05/17 21:00 08/06/17 09:01 (SEROquel) 100 mg HS PO 08/05/17 21:00 08/05/17 20:10 Family History Patient denies family psychiatric history Social History Patient was born and raised in [facility], she lives in [place] with her mother, she is , he kids, supported by snf benefits, highest level of education is high school Patient's Strengths (min. 2) Outpatient psychiatric care Physical Exam No EPS, no tremors, no agitation, no retardation, no gait disturbance Vital Signs Vital Signs Date Time Temp Pulse Resp B/P (MAP) Pulse Ox O2 Delivery O2 Flow Rate FiO2 08/06/17 07:48 96 21 08/06/17 07:10 97.7 71 18 111/72 (85) 08/05/17 15:14 Room Air 08/05/17 11:42 2.00 Lab Results Test 08/05/17 11:40 08/05/17 13:00 08/05/17 13:30 White Blood Count 5.8 TH/MM3 Red Blood Count 4.67 MIL/MM3 Hemoglobin 14.0 GM/DL Hematocrit 43.0 % Mean Corpuscular Volume 92.0 FL Mean Corpuscular Hemoglobin 30.0 PG Mean Corpuscular Hemoglobin Concent 32.6 % Red Cell Distribution Width 15.0 % Platelet Count 252 TH/MM3 Mean Platelet Volume 7.4 FL Neutrophils (%) (Auto) 65.9 % Lymphocytes (%) (Auto) 25.9 % Monocytes (%) (Auto) 7.0 % Eosinophils (%) (Auto) 0.4 % Basophils (%) (Auto) 0.8 % Neutrophils # (Auto) 3.8 TH/MM3 Lymphocytes # (Auto) 1.5 TH/MM3 Monocytes # (Auto) 0.4 TH/MM3 Eosinophils # (Auto) 0.0 TH/MM3 Basophils # (Auto) 0.0 TH/MM3 CBC Comment DIFF FINAL Differential Comment Prothrombin Time 10.0 SEC Prothromb Time International Ratio 0.9 RATIO Activated Partial Thromboplast Time 25.4 SEC Blood Urea Nitrogen 13 MG/DL Creatinine 1.23 MG/DL Random Glucose 99 MG/DL Total Protein 5.7 GM/DL Albumin 2.3 GM/DL Calcium Level 7.5 MG/DL Magnesium Level 2.3 MG/DL Alkaline Phosphatase 141 U/L Aspartate Amino Transf (AST/SGOT) 18 U/L Alanine Aminotransferase (ALT/SGPT) 21 U/L Total Bilirubin LESS THAN 0.1 MG/DL Sodium Level 139 MEQ/L Potassium Level 4.4 MEQ/L Chloride Level 106 MEQ/L Carbon Dioxide Level 25.6 MEQ/L Anion Gap 7 MEQ/L Estimat Glomerular Filtration Rate 44 ML/MIN Total Creatine Kinase 66 U/L Troponin I LESS THAN 0.02 NG/ML Lipase 45 U/L Thyroid Stimulating Hormone 3rd Gen 1.280 uIU/ML Salicylates Level 3.0 MG/DL Acetaminophen Level LESS THAN 2.0 MCG/ML Ethyl Alcohol Level LESS THAN 3 MG/DL Urine Color YELLOW Urine Turbidity CLEAR Urine pH 5.5 Urine Specific [place] 1.033 Urine Protein 30 mg/dL Urine Glucose (UA) NEG mg/dL Urine Ketones TRACE mg/dL Urine Occult Blood NEG Urine Nitrite NEG Urine Bilirubin NEG Urine Urobilinogen 4.0 MG/DL Urine Leukocyte Esterase SMALL Urine RBC 2 /hpf Urine WBC 1 /hpf Urine Squamous Epithelial Cells 2 /hpf Urine Bacteria RARE /hpf Urine Hyaline Casts 3 /lpf Urine Mucus FEW /lpf Microscopic Urinalysis Comment CULT NOT INDICATED Urine Opiates Screen POS Urine Barbiturates Screen NEG Urine Amphetamines Screen NEG Urine Benzodiazepines Screen POS Urine Cocaine Screen NEG Urine Cannabinoids Screen NEG Mental Status Examination Appearance woman, green and red tinted hair, age appearing, good hygiene, calm and cooperative Speech: Unremarkable Orientation: x3 Memory: Unremarkable Thought Process: Logical Thought Content: Unremarkable Hallucination Type: None Attention and Concentration: Good Suicidal Ideation: No Previous Suicide Attempts: No Homicidal Ideation: No Previous Homicide Attempts: No Insight: Good Judgment: WNL Affect: Good Mood: Appropriate Motor Activity: Normal gait Assessment & Plan Problem List: (1) Bipolar 1 disorder, depressed ICD Codes: F31.9 - Bipolar disorder, unspecified Status: Chronic Assessment & Plan: On psychiatric evaluation today the patient does not present any acute, concerning or significant symptomatology of depression that requires an immediate psychiatric intervention. Patient denies visual and auditory hallucinations, she denies suicidal and homicidal ideation. She is logical, coherent and relevant. Oriented 3. There is not indication for psychiatric admission at this moment. Recent episode of syncope definitely could be related with psychotropics, For example Seroquel is well know by potentially producing Orthostatic hypotension, so agree with decreasing to 100 mg. I suggested to discuss also decreasing Xanax to half, 1 mg bid, and discuss changes with Dr. Coe this coming Friday. Patient was widely educated about the importance of using medications as prescribed and the potential fro dependence and tolerance. also educated about side effects. Brief supportive psychotherapy provided. Castro act will be lifted. Assessment & Plan Estimated LOS: Dinesh London MD Aug 06, 2017 09:13
[2017-08-06] MEDS ORDERED: ALPR2TAB3 PO (13:49)
--- NOTE | 2017-08-06 14:59 | EKG ---
Date Performed: 08/05/2017 Time Performed: 11:41:23 PTAGE: 62 years EKG: SINUS TACHYCARDIA LOW QRS VOLTAGE IN PRECORDIAL LEADS NONSPECIFIC T-WAVE ABNORMALITY ABNORM AL RHYTHM ECG INTERPRETATION BASED ON A DEFAULT AGE OF 40 YEARS Low precordial voltage and nonspecifi c T-wave abnormalities are both new from the old tracing. PREVIOUS TRACING : 08/20/2008 11.39 DOCTOR: Philip Horan Interpretating Date/Time 08/06/2017 14:59:26
== END 2017-08-06 16:07 | disposition home or self-care (01) ==
LOC: NEPE 11:21 → NEDA 14:34 → NEPGCP 17:57
PROVIDERS: ADMIT Hospitalist; ATTEND Hospitalist
DX: R41.0 Disorientation, unspecified (principal); F31.9 Bipolar disorder, unspecified; F41.9 Anxiety disorder, unspecified; N18.3 Chronic kidney disease, stage 3 (moderate); I48.91 Unspecified atrial fibrillation; Z72.0 Tobacco use; Z90.710 Acquired absence of both cervix and uterus
CPT/HCPCS: 70450; 71010; 80053; 80307; 81001; 82550; 83690; 83735; 84443; 84484; 85025; 85610; 85730; 93005; 96360; 96361; 97161; 99285; G0378; G8987; G8988; J7030